=== PATIENT | male | born 1965 ===

== ENCOUNTER 2017-04-25 13:45 | Emergency (ER) | payer BC ==
[2017-04-25 14:33] VITALS: TEMP 97.9; O2SAT 100
[2017-04-25] MEDS ORDERED: Lidocaine 1% Inj (20ml) ONE (14:58)
--- NOTE | 2017-04-25 15:30 | ED PDOC ---
Upper Extremity Pain/Injury Time Seen by Provider: 04/25/17 15:09 Chief Complaint (Nursing): Upper Extremity Problem/Injury Chief Complaint (Provider): Upper Extremity Problem/Injury History Per: Patient History/Exam Limitations: no limitations Onset/Duration Of Symptoms: Days (x 2) Current Symptoms Are (Timing): Still Present Additional Complaint(s): Mejia Grimes is a 52 year old male with high blood pressure who presents to the ED for left index finger pain, onset 2 days. He took medications for blood pressure today. Patient reports that he peeled off skin of finger near the cuticle. He denies any fever or difficulty moving the finger. PT states his BP is normally very high 140/100 does take medication - ie lisinopril 5mg daily. PMD: Dr Miguel Cochran MD Past Medical History Reviewed: Historical Data, Nursing Documentation, Vital Signs Vital Signs: Last Vital Signs Temp 97.9 F 04/25/17 14:30 Pulse 84 04/25/17 14:30 Resp 16 04/25/17 14:30 BP 173/121 H 04/25/17 14:30 Pulse Ox 100 04/25/17 14:30 - Medical History PMH: HTN - Family History Family History: States: Unknown Family Hx - Home Medications Home Medications: Ambulatory Orders Medication Instructions Recorded Cephalexin [cephalexin] 500 mg PO BID #20 cap 04/25/17 - Allergies Allergies/Adverse Reactions: Allergies Allergy/AdvReac Type Severity Reaction Status Date / Time No Known Allergies Allergy Verified 04/25/17 14:30 Review of Systems ROS Statement: Except As Marked, All Systems Reviewed And Found Negative Constitutional: Negative for: Fever Musculoskeletal: Positive for: Hand Pain (left index finger). Negative for: Other (difficulty moving finger) Physical Exam - Reviewed Nursing Documentation Reviewed: Yes Vital Signs Reviewed: Yes - Physical Exam Appears: Positive for: Well, No Acute Distress. Negative for: Uncomfortable, In Acute Distress Skin: Positive for: Normal Color Eye Exam: Positive for: Normal appearance Neck: Positive for: Normal Cardiovascular/Chest: Positive for: Regular Rate, Rhythm Respiratory: Positive for: Normal Breath Sounds Extremity: Positive for: Other (left 1st index with swelling to DIP and ertyhema pain and area of white head formation. ) - ECG O2 Sat by Pulse Oximetry: 100 - Progress ED Course And Treament: noted: BP is improving without use of medication. will given Metoprolol . Pt states she normally runs really high. Pt states that he will be following up with his PMD on Thursday. Pt well appearing. not dizzy, no headache no vision changes no cP. PT stable for d.c with elevated BP. made aware of stroke risk, CV risk renal risk. Temp Pulse Resp BP Pulse Ox 97.9 F 81 16 142/101 H 100 04/25/17 14:30 04/25/17 15:35 04/25/17 14:30 04/25/17 15:35 04/25/17 15:36 Vital Signs - 24 hr 04/25/17 04/25/17 04/25/17 14:30 15:15 15:35 Temperature 97.9 F Pulse Rate 84 81 Respiratory 16 Rate Blood Pressure 173/121 H 167/111 H 142/101 H O2 Sat by Pulse 100 100 Oximetry 04/25/17 15:36 Temperature Pulse Rate Respiratory Rate Blood Pressure O2 Sat by Pulse 100 Oximetry Medical Decision Making Medical Decision Making: procedure: I&D with #11 blade use to cuticle area pus drainage lidocaine 1% epi without lidocaine 4cc used digit block Pt will be d. with keflex and advised to soak finger in warm water. Disposition - Clinical Impression Clinical Impression: [facility] - Patient ED Disposition Is Patient to be Admitted: No Counseled Patient/Family Regarding: Studies Performed, Diagnosis, Need For Followup, Rx Given - Disposition Referrals: FAMILY PROVIDER,NO [Primary Care Provider] - Disposition Time: 15:43 Condition: STABLE Prescriptions: Cephalexin [cephalexin] 500 mg PO BID #20 cap Instructions: [facility] (ED) Forms: [employer] (I[place]ic)
[2017-04-25 16:06] VITALS: BP 132/99; PULSE 78; RESP 14
== END 2017-04-25 16:07 | disposition home or self-care (01) ==
LOC: H.ER 13:45
DX: L03.012 Cellulitis of left finger (principal)